=== PATIENT | male | born 1965 | race Caucasian/White ===

== ENCOUNTER → 2019-09-16 10:43 | Outpatient (CLI) | payer MEDICARE, SELFPAY ==
--- NOTE | ~2019-09-16 | XR_ITS ---
EXAMINATION: XR chest 2V DATE: 09/16/2019 10:57 INDICATION: Wheezing. TECHNIQUE: Frontal and lateral views of the chest were obtained. COMPARISON: Chest 2 views 04/10/2008 FINDINGS: A calcified left lung nodule is consistent with old granulomatous disease. No pleural effus ion or pneumothorax. The heart size is normal. Median sternotomy wires and mediastinal surgical clips are seen, likely from prior coronary artery bypass grafting. IMPRESSION: 1. No acute cardiopulmonary disease. Reviewed, dictated and finalized at location B. [facility]
== END ==
PROVIDERS: PCP Emergency Medicine; Visit Provider Emergency Medicine
DX: R06.2 Wheezing (principal)
CPT/HCPCS: 71046

== ENCOUNTER 2022-04-23 08:59 | Outpatient (CLI) | payer MEDICARE, SELFPAY ==
--- NOTE | 2022-05-24 23:38 | WPDSLEEPSTUD ---
Sleep Study Date of Study: 04/23/22 Ordering Provider: Pushpa Spears MD Interpreting Physician: Cass Berman DO Sleep Study Type: Split Polysomnogram Height: 1.7 m Weight: 106.594 kg Body Mass Index: 36.8 Neck Circumference (inches): 19 Winder: 18 Reason for Sleep Study Previous history of VIBHA and had an ASV Titration in 2016. He was on ASV EPAP 7/min PS 3, Max PS 15. He ran out of supplies 6 months ago so he was unable to continue using it. 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 The patient has not used his ASV machine in 6 months due to not having supplies. The patient frequently awakens from sleep short of breath. He denies awakening at night with heartburn, belching or cough. He occasionally has trouble sleeping when he has a cold. He frequently wakes up gasping for air throughout the night. He frequently has breathing problems at night observed by himself or others. He occasionally has heart palpitations or irregular heartbeats during the night. He constantly falls asleep during the day but never while driving. He denies sleep paralysis and cataplexy. He denies having trouble at school or work due to sleepiness. He occasionally experiences vivid dreamlike scenes upon awakening or falling asleep. He occasionally feels afraid of going to sleep. He denies having nightmares. He denies remembering his drinks. He constantly has thoughts racing through his mind. He rarely feels sad or depressed. He constantly has anxiety. He frequently notices parts of his body jerk. He frequently kicks during the night. He occasionally has crawling and aching feelings in his legs and occasionally has leg pain during the night. He denies grinding his teeth during sleep and denies awakening with morning jaw pain. He is occasionally bothered by pain during the day and occasionally awakened by pain during the night. He occasionally wakes up feeling stiff in the morning. He rarely wakes up with sore or achy muscles. He rarely wakes up with pain in the neck, spine and other joints. He goes to bed at 10:00 p.m. on weekdays and at 11:00 p.m. on the weekends. It takes him several hours to fall asleep. He wakes up 3-4 times throughout the night for unknown reasons. It takes him at least an hour to fall back asleep. He wakes up at 10 a.m. on weekdays and at 11:00 a.m. on the weekends. He typically gets 3 hours of sleep per night. He will stay in bed for an hour after waking up in the morning. He currently lives with his son. He does not consume any caffeinated beverages within 2 hours of bedtime. He does not engage in physical exercise before bedtime. He will watch television before falling asleep. He will take naps in the afternoon or the evening but they are not refreshing. He drinks 2 cans of caffeinated beverage per day. He used to smoke 2 packs a day for 35 years but stopped in February 2021. [facility] Past Medical History Medical History CHF (congestive heart failure) COPD (chronic obstructive pulmonary disease) Heart disease Social History Social History Smoking packs per day: 2 Smoking cigarettes per day: 40.0 Years smoked: 35 Smoking pack-years: 70.00 Smoking status: Former smoker Tobacco type: cigarettes Smoking end date: 02/12/21 Medications Home Medications Medication Instructions Recorded Confirmed Type alirocumab 75 mg/mL subcutaneous 75 mg subcut ONCE 02/21/22 History pen injector (Praluent Pen) clopidogrel 75 mg tablet 75 mg PO DAILY 02/21/22 History fluticasone propionate 50 1 spray intranasal DAILY 02/21/22 History mcg/actuation nasal spray,suspension nitroglycerin 0.2
[2022-05-24 23:47] VITALS: BMI 36.8
== END 2022-04-24 06:08 | disposition home or self-care (01) ==
LOC: ANHCSM 08:59
PROVIDERS: PCP Emergency Medicine; Visit Provider Internal Medicine Critical Care Medicine
DX: G47.33 Obstructive sleep apnea (adult) (pediatric) (principal)
CPT/HCPCS: 95811

== ENCOUNTER 2022-08-28 12:38 | Outpatient (CLI) | payer MEDICARE, SELFPAY ==
--- NOTE | 2022-08-28 16:27 | P.PCNPFT_ITS ---
PFT Procedure Performed PFT Procedure Performed Spirometry with Pre/Post Bronchodilator Plethysmography (Lung Vol) Diffusing Cap (DLCO) Flow Vol Loop PFT Interpretation This is a pulmonary function test with pre and post-bronchodilator spirometry, plethysmography and diffusing capacity. The test was performed and results interpreted in accordance with the 2019 and 2005 ATS/ERS Task Force guidelines respectively using the Global Lung Function Initiative-2012 reference equations. Patient demonstrated good effort and cooperation. Reproducibility criteria were met. The quality of the pre bronchodilator spirometry maneuver was Grade A and post bronchodilator spirometry maneuver was Grade A. Findings: Spirometry: There is decreased maximal expiratory airflow at low lung volumes with a mildly concave expiratory flow tracing. The contour the inspiratory flow tracing is normal. The pre bronchodilator FVC is 4.03 L, 91% predicted. The pre bronchodilator FEV1 is 2.71 L, 78% predicted. The pre bronchodilator FEV1: FVC ratio 67%. The post bronchodilator FVC is 4.11 L, representing a 2% increase. The post bronchodilator FEV1 is 3.00 L, representing an 11% increase. The post bronchodilator FEV1:FVC ratio was 73%. Plethysmography: The total lung capacity is 8.16 L, 124% predicted. The fu nctional residual capacity is 4.06 L, 120% predicted. The residual volume is 4.02 L, 194% predicted. Diffusing capacity: The diffusing capacity unadjusted for hemoglobin and carboxyhemoglobin is 24.5, 87% predicted. The diffusing capacity adjusted for alveolar volume is 4.04, 91% predicted. Impression: There is a mild obstructive abnormality with a normal FEV and without significant improvement after inhaling a single dose of albuterol. The increase in residual volume is consistent with air trapping from an obstructive abnormality. The diffusing capacity is normal. There are no prior studies for comparison
== END 2022-08-28 12:39 | disposition home or self-care (01) ==
LOC: ANHPFT 12:39
PROVIDERS: PCP Emergency Medicine; Visit Provider Physician Assistant
DX: J44.9 Chronic obstructive pulmonary disease, unspecified (principal); R06.02 Shortness of breath; R94.2 Abnormal results of pulmonary function studies
CPT/HCPCS: 94060; 94726; 94729

== ENCOUNTER 2024-03-13 10:40 | Emergency (ER) | payer MEDICARE, SELFPAY ==
--- NOTE | 2024-03-13 10:51 | ED.EAR ---
HPI - Ear Problem General Chief complaint: Ear Stated complaint: right ear pain,swelling Time Seen by Provider: 03/13/24 10:43 Source: patient Mode of arrival: ambulatory Limitations: no limitations History of Present Illness HPI Narrative: Jeremiah is a 58-year-old male patient presenting to the clinic today with complaints of right ear pain and swelling x 2 days. He reports he has tried some [id number] swimmer's ear medication without relief. Also tried taking ibuprofen without much relief. States he feels as though his ears swelling shut and he has lymph node swelling over the pre aurical nodes Related Data Home Medications Medication Instructions Recorded Confirmed alirocumab 75 mg/mL subcutaneous 75 mg subcut ONCE 02/21/22 06/24/23 pen injector (Praluent Pen) clopidogrel 75 mg tablet 75 mg PO DAILY 02/21/22 06/24/23 fluticasone propionate 50 1 spray intranasal DAILY 02/21/22 06/24/23 mcg/actuation nasal spray,suspension nitroglycerin 0.2 mg/hr 1 patch transdermal DAILY 02/21/22 06/24/23 transdermal 24 hour patch (Nitro-Dur) nitroglycerin 0.4 mg sublingual 0.4 mg sublingual Q5M PRN 02/21/22 06/24/23 tablet (Nitrostat) psyllium husk 3 gram/3 gram oral g PO 02/21/22 06/24/23 powder rosuvastatin 40 mg tablet 40 mg PO DAILY 02/21/22 06/24/23 metoprolol tartrate 25 mg tablet 25 mg PO BID 09/17/22 06/24/23 Allergies Allergy/AdvReac Type Severity Reaction Status Date / Time No Known Drug Allergies Allergy none Verified 03/13/24 10:42 Review of Systems Review of Systems: Pertinent positives per HPI. Patient denies any fever, chills, rash, headache, visual changes, dizziness, cough, runny nose, sore throat, shortness of breath, chest pain, palpitations, nausea, vomiting, diarrhea, constipation, abdominal pain, or any urinary issues. [facility] Past Medical History Medical History CHF (congestive heart failure) COPD (chronic obstructive pulmonary disease) Heart disease Surgical History Surgical History History of cholecystectomy History of herniorrhaphy Social History Social History Smoking packs per day: 2 Smoking cigarettes per day: 40.0 Years smoked: 35 Smoking pack-years: 70.00 Smoking status: Former smoker Tobacco type: cigarettes Smoking end date: 02/12/21 Comments At the time of my signature, I reviewed and agree with the nursing past medical, surgical, social, and family history. There is no relevant family history pertinent to the patient complaint. Exam Narrative: General: Well-developed, obese, in no apparent distress Head: Normocephalic, atraumatic Eyes: Pupils equally round and reactive to light bilaterally, EOM intact, sclera and conjunctive clear, no discharge, lids normal Ears: Left TMs intact and clear, Left ear canals clear, Unable to visualize right TM due to swelling of the right ear canal, white otorrhea noted on exam, swelling noted over the feli aurical nodes, tenderness to palpation of the tragus and pulling of the pinna, no tenderness or redness over the mastoid, grossly hearing normal. Nose: Nares patent, no discharge, no inflammation, no sinus tenderness. Mouth: Oropharynx without lesions or masses, good dentition, MMM. Neck: Supple, trachea midline, no enlargement of anterior or posterior cervical nodes, no thyroid masses or goiter palpable. Cardio: Regular rate and rhythm, s1 and s2 normal, no murmur appreciated. Resp: Clear to auscultation bilaterally anteriorly and posteriorly, no rhonchi, rales, wheezing or rubs Course Course Emergency Course: Portions of this record may have been created with voice recognition software. Level of Care: Express Care Visit Vital Signs Vital signs: Vital Signs Temperature 37.2 C 03/13/24 10:56 Pulse Rate 62
[2024-03-13 10:56] VITALS: BP 155/88; PULSE 62; RESP 18; TEMP 37.2; O2SAT 99
== END 2024-03-13 11:08 | disposition home or self-care (01) ==
PROVIDERS: Emergency Provider Nurse Practitioner Family; PCP Physician Assistant
DX: H60.311 Diffuse otitis externa, right ear (principal); Z87.891 Personal history of nicotine dependence; J44.9 Chronic obstructive pulmonary disease, unspecified; I50.9 Heart failure, unspecified
CPT/HCPCS: 99213; G0463

== ENCOUNTER 2024-11-14 10:13 | Emergency (ER) | payer MEDICARE, SELFPAY ==
[2024-11-14 10:33] VITALS: BP 210/101; PULSE 61; RESP 16; TEMP 36.6; O2SAT 99
[2024-11-14 10:34] VITALS: BP 204/119
--- NOTE | 2024-11-14 10:41 | ED.GENADULT ---
HPI - General Adult General Chief complaint: Ear Stated complaint: right ear pain Time Seen by Provider: 11/14/24 10:42 Source: patient, RN notes reviewed and old records reviewed Mode of arrival: ambulatory Limitations: no limitations History of Present Illness HPI narrative: 59-year-old male presents to the [facility] with complaints right ear pain. Patient reports symptoms started on Thursday. Does have an ENT provider. Patient with a history of high blood pressure. Patient states that he takes metoprolol. Patient reports he did take his medication today. Patient denies any headaches, blurry vision, chest pain, shortness of breath. Onset (ago): day(s) (3) Related Data Home Medications ?Medication ?Instructions ?Recorded ?Confirmed ?Last Taken ?Type alirocumab 75 mg/mL subcutaneous 75 mg subcut ONCE 02/21/22 06/24/23 Unknown History pen injector (Praluent Pen) clopidogrel 75 mg tablet 75 mg PO DAILY 02/21/22 06/24/23 Unknown History fluticasone propionate 50 1 spray intranasal DAILY 02/21/22 06/24/23 Unknown History mcg/actuation nasal spray,suspension nitroglycerin 0.2 mg/hr 1 patch transdermal DAILY 02/21/22 06/24/23 Unknown History transdermal 24 hour patch (Nitro-Dur) nitroglycerin 0.4 mg sublingual 0.4 mg sublingual Q5M PRN 02/21/22 06/24/23 Unknown History tablet (Nitrostat) psyllium husk 3 gram/3 gram oral g PO 02/21/22 06/24/23 Unknown History powder rosuvastatin 40 mg tablet 40 mg PO DAILY 02/21/22 06/24/23 Unknown History metoprolol tartrate 25 mg tablet 25 mg PO BID 09/17/22 06/24/23 Unknown History evolocumab 140 mg/mL subcutaneous mg subcut 11/14/24 Unknown History pen injector (Repatha SureClick) Allergies Allergy/AdvReac Type Severity Reaction Status Date / Time No Known Drug Allergies Allergy none Verified 11/14/24 10:51 Review of Systems Review of Systems: All systems reviewed & are unremarkable except as noted in HPI and below Constitutional: Constitutional: Reports no additional constitutional complaints ENT: Reports as per HPI and Reports otalgia (Right) Cardiovascular: Cardiovascular: Reports no additional cardiovascular complaints, Denies chest pain and Denies dyspnea Respiratory: Respiratory: Reports no additional respiratory complaints, Denies chest congestion, Denies cough and Denies dyspnea Musculoskeletal: Musculoskeletal: Reports no additional musculoskeletal complaints Integumentary/Breasts: Skin/Breast: Reports system reviewed and no additional complaints, except as docu [facility] Past Medical History Medical History Heart disease COPD (chronic obstructive pulmonary disease) CHF (congestive heart failure) Surgical History Surgical History History of herniorrhaphy History of cholecystectomy Social History Social History Smoking packs per day: 2 Smoking cigarettes per day: 40.0 Years smoked: 35 Smoking pack-years: 70.00 Smoking status: Former smoker Tobacco type: cigarettes Smoking end date: 02/12/21 Comments At the time of my signature, I reviewed and agree with the nursing past medical, surgical, social, and family history. There is no relevant family history pertinent to the patient complaint. Exam Const: General: cooperative, healthy appearing, comfortable, no acute distress, well developed, alert and well nourished Nutritional Appearance: well nourished Orientation/consciousness: patient oriented x3 Limitations: no limitations HENMT: Head: normal to inspection Ears: TM normal on the left, mastoids normal, Abnormal EAC present erythema on the right, edema on the right and EAC tenderness on the right, periauricular adenopathy on the right (Pre-auricular) and unable to visualize TM on the right Face/Nose/Sinus: Normal external nose present Mouth: Yes Normal oral and palatal mucosa present, Yes lip normal, Yes tongue normal and Yes moist mucous membranes Throat: posterior oropharynx normal, uvula midline and no uvular edema Eyes: General: appearance normal, both eyes and all related structures Alignment and Position: alignment normal Neck: Neck: normal visual inspection, full ROM, no lymphadenopathy and no meningeal signs Chest: Chest palpation & inspection: normal inspection of the chest Resp: Effort & Inspection: normal respiratory effort and able to speak in complete sentences Cardio: Rate: regular rate Skin: General skin exam: normal color and no rashes or lesions noted Neuro: General: patient oriented x3, gait normal, moves all extremities and no meningeal signs Cognition (Neuro): normal cognition Speech: normal speech Gait exam (Neuro): Normal gait present Extrem: General: normal to inspection, full ROM, capillary refill normal and normal gait Psych: Appearance: grossly normal and well kempt Mental Status: mental status grossly normal Speech and movement: Normal speech and movement present and Clear speech present Affect: normal affect Attitude: cooperative Course Course Level of Care: Express Care Visit Vital Signs Vital signs: Vital Signs Temperature 97.8 F 11/14/24 10:33 Pulse Rate 61 11/14/24 10:33 Respiratory Rate 16 11/14/24 10:33 Blood Pressure 210/101 H 11/14/24 10:33 Pulse Oximetry 99 11/14/24 10:33 Oxygen Delivery Room Air 11/14/24 10:33 Temperature 97.8 F 11/14/24 10:33 Pulse Rate 61 11/14/24 10:33 Respiratory Rate 16 11/14/24 10:33 Blood Pressure 212/105 H 11/14/24 11:10 Pulse Oximetry 99 11/14/24 10:33 Oxygen Delivery Room Air 11/14/24 10:33 Reviewed Medical Decision Making MDM Narrative Medical decision making narrative: Patient sitting comfortably in exam room. Nontoxic, vitals stable. Patient in no acute distress Patient presents for pain to the right ear. Significant erythema noted with swelling. Ear wick placed. Discussed with patient, he verbalized understanding. Will follow up with ENT Discussed blood pressure with patient. States he will call as primary for further evaluation. Manual pressure 190/103 Discussed in great detail signs and symptoms proceed to the emergency room which he verbalized understanding Discharge instructions reviewed with patient, as well as provided in writing per nursing staff. The instructions also include specific and strict return/GO TO THE ER as well as f/u information. All questions have been answered, and the patient deny any further questions with discharge and discharge plan. Some parts of this dictation were generated by voice recognition software and may contain typographical and/or grammatical inaccuracies. Differential Diagnosis Differential Diagnosis: Otitis media, serous otitis, earache Medical Records Medical records reviewed: Yes I reviewed the external patient's medical records. Vital Signs Vital Signs: Vital Signs Temperature 97.8 F 11/14/24 10:33 Pulse Rate 61 11/14/24 10:33 Respiratory Rate 16 11/14/24 10:33 Blood Pressure 210/101 H 11/14/24 10:33 Pulse Oximetry 99 11/14/24 10:33 Oxygen Delivery Room Air 11/14/24 10:33 Temperature 97.8 F 11/14/24 10:33 Pulse Rate 61 11/14/24 10:33 Respiratory Rate 16 11/14/24 10:33 Blood Pressure 212/105 H 11/14/24 11:10 Pulse Oximetry 99 11/14/24 10:33 Oxygen Delivery Room Air 11/14/24 10:33 Reviewed Lab Data Lab results reviewed: Yes I reviewed the patient's lab results. Labs: Reviewed Critical Care Time Critical Care Time Critical Care Time: No Discharge Plan Discharge Clinical Impression: Otitis externa Qualifiers: Otitis externa type: unspecified type Chronicity: acute Laterality: right Qualified Code(s): H60.501 - Unspecified acute noninfective otitis externa, right ear Patient Disposition: Home, Self-Care Condition: Stable Instructions: Antibiotic Form, Swimmer's Ear (ED), How to Take a Blood Pressure Reading (ED), Hypertension (ED) Additional Instructions: Today your blood pressure was elevated. It is recommended you follow-up with primary care provider within 1 week. If you are having a hard time finding a physician please call our [facility] group liaison at [phone]. Today your your showed an otitis externa. Please follow-up with your ENT provider for further evaluation. An ear wick was placed in your ear please place the ear drops in your ear as soon as you get them and then again tonight. Patient Language: Korean Prescriptions: New amoxicillin-pot clavulanate 875-125 mg tablet 1 tablet PO Q12H Qty: 20 0RF ciprofloxacin-dexamethasone 0.3-0.1 % drops,suspension 5 drp RIGHT EAR Q12H 7 Days Qty: 7.5 0RF No Action Repatha SureClick 140 mg/mL pen injector SUBCUT metoprolol tartrate 25 mg tablet 25 mg PO BID fluticasone propionate 50 mcg/actuation spray,suspension 1 spray intranasal DAILY Rx Instructions: administer into each nostril clopidogrel 75 mg tablet 75 mg PO DAILY nitroglycerin [Nitro-Dur] 0.2 mg/hr patch 24 hour 1 patch transdermal DAILY Rx Instructions: allow nitrate-free interval of approx. 10-12 hrs per 24-hour period nitroglycerin [Nitrostat] 0.4 mg tablet, sublingual 0.4 mg sublingual Q5M PRN Rx Instructions: do not exceed 3 doses per episode Praluent Pen 75 mg/mL pen injector 75 mg subcut ONCE Rx Instructions: inject into abdomen, thigh, or upper arm (deltoid muscle); rotate sites rosuvastatin 40 mg tablet 40 mg PO DAILY psyllium husk 3 gram/3 gram powder PO (DME) CPAP See Rx Instructions .Route .MEDSUPPLY Qty: 1 0RF Rx Instructions: CPAP (E0601) 15 CMH20 EPR 3 (E0562) Heated Humidifier CPAP/BIPAP Supplies/Mask (headgear/ tubing/filters) size medium Resmed AirTouch F20 full face mask DX Code: G47.33 Length of Need: Lifetime DME:Brynn Babcock, CANDYNPI: [id number] albuterol sulfate 90 mcg/actuation HFA aerosol inhaler 1 - 2 puff inhalation Q4-6H PRN (Reason: shortness of breath or wheezing) Qty: 8.5 2RF Follow-up/Referrals: PHYSICIAN,FAMILY MEDICINE PHYSICIAN [Primary Care Provider] - Stand Alone Forms: Work/School Release IP Time of Disposition: 11:08
[2024-11-14 10:50] VITALS: BP 190/103
[2024-11-14 11:10] VITALS: BP 212/105
== END 2024-11-14 11:10 | disposition home or self-care (01) ==
PROVIDERS: Emergency Provider Nurse Practitioner
DX: H60.501 Unspecified acute noninfective otitis externa, right ear (principal); Z87.891 Personal history of nicotine dependence; I50.9 Heart failure, unspecified; J44.9 Chronic obstructive pulmonary disease, unspecified
CPT/HCPCS: 99213; G0463

== ENCOUNTER 2024-12-24 12:26 | Emergency (ER) | payer MEDICARE, SELFPAY ==
--- NOTE | 2024-12-24 12:33 | ED.SKABFB ---
HPI - Skin/Abscess/Foreign Bdy General Chief complaint: Skin/Abscess/Foreign Body Stated complaint: Rash Time Seen by Provider: 12/24/24 12:33 Source: patient Mode of arrival: ambulatory Limitations: no limitations History of Present Illness HPI narrative: Jeremiah is a 59-year-old male patient presenting to the clinic today with complaints of a painful rash on his left back, left side, and left abdomen. He reports symptoms started approximately 2 days ago. Feels as though there is pins and needles sticking him. No fevers, chills, body aches. Has had the chickenpox as a kid but has never had shingles. Has not gotten a shingles shot Related Data Home Medications ?Medication ?Instructions ?Recorded ?Confirmed ?Last Taken ?Type alirocumab 75 mg/mL subcutaneous 75 mg subcut ONCE 02/21/22 06/24/23 Unknown History pen injector (Praluent Pen) clopidogrel 75 mg tablet 75 mg PO DAILY 02/21/22 06/24/23 Unknown History fluticasone propionate 50 1 spray intranasal DAILY 02/21/22 06/24/23 Unknown History mcg/actuation nasal spray,suspension nitroglycerin 0.2 mg/hr 1 patch transdermal DAILY 02/21/22 06/24/23 Unknown History transdermal 24 hour patch (Nitro-Dur) nitroglycerin 0.4 mg sublingual 0.4 mg sublingual Q5M PRN 02/21/22 06/24/23 Unknown History tablet (Nitrostat) psyllium husk 3 gram/3 gram oral g PO 02/21/22 06/24/23 Unknown History powder rosuvastatin 40 mg tablet 40 mg PO DAILY 02/21/22 06/24/23 Unknown History metoprolol tartrate 25 mg tablet 25 mg PO BID 09/17/22 06/24/23 Unknown History evolocumab 140 mg/mL subcutaneous mg subcut 11/14/24 Unknown History pen injector (Repatha SureVictor Hugoick) Allergies Allergy/AdvReac Type Severity Reaction Status Date / Time No Known Drug Allergies Allergy none Verified 12/24/24 12:35 Review of Systems Review of Systems: Pertinent positives per HPI. Patient denies any fever, chills, headache, visual changes, dizziness, cough, runny nose, sore throat, shortness of breath, chest pain, palpitations, nausea, vomiting, diarrhea, constipation, abdominal pain, or any urinary issues. ON LICENSE OF [facility] Past Medical History Medical History Heart disease COPD (chronic obstructive pulmonary disease) CHF (congestive heart failure) Surgical History Surgical History History of herniorrhaphy History of cholecystectomy Social History Social History Smoking packs per day: 2 Smoking cigarettes per day: 40.0 Years smoked: 35 Smoking pack-years: 70.00 Smoking status: Former smoker Tobacco type: cigarettes Smoking end date: 02/12/21 Comments At the time of my signature, I reviewed and agree with the nursing past medical, surgical, social, and family history. There is no relevant family history pertinent to the patient complaint. Exam Narrative: General: Well-developed, obese, in no apparent distress Head: Normocephalic, atraumatic. Cardio: Regular rate and rhythm, s1 and s2 normal, no murmur appreciated. Resp: Clear to auscultation bilaterally, no rhonchi, rales, wheezing or rubs. Integumentary: [place], warm, and dry, painful, red, raised, erythematous base rash with vesicular lesions following dermatome and not crossing the midline border Course Course Emergency Course: Portions of this record may have been created with voice recognition software. Level of Care: Express Care Visit Vital Signs Vital signs: Vital Signs Temperature 36.2 C L 12/24/24 12:37 Pulse Rate 88 12/24/24 12:37 Respiratory Rate 19 12/24/24 12:37 Blood Pressure 184/111 H 12/24/24 12:37 Pulse Oximetry 100 12/24/24 12:37 Oxygen Delivery Room Air 12/24/24 12:37 Temperature 36.2 C L 12/24/24 12:37 Pulse Rate 88 12/24/24 12:37 Respiratory Rate 19 12/24/24 12:37 Blood Pressure 184/111 H 12/24/24 12:37 Pulse Oximetry 100 12/24/24 12:37 Oxygen Delivery Room Air 12/24/24 12:37 Vital signs reviewed MDM - Skin/Abscess/Foreign Bdy MDM Narrative Medical decision making narrative: At the time of visit patient is resting comfortably on the exam table. Patient appears to be nontoxic. Plan: I suspect patient has shingles. Prescription for acyclovir was sent to the pharmacy. Blood pressure was elevated in the clinic today however the patient has not taken his blood pressure medications. He denies any chest pain, shortness of breath, dizziness, or headache. Supportive measures were discussed with the patient and they voiced understanding discharge instructions and agrees to treatment plan. Return precautions reviewed Differential Diagnosis Differential diagnosis: Likely abscess of skin or subcutaneous tissue, viral exanthem, dermatophytosis, urticaria, herpes zoster, allergic reaction to drug, cellulitis, eczema, insect bites, impetigo and contact dermatitis Discharge Plan Discharge Clinical Impression: Shingles Qualifiers: Herpes zoster complications: without complications Qualified Code(s): B02.9 - Zoster without complications Patient Disposition: Home Condition: Stable Instructions: Antibiotic Form, Shingles (ED) Additional Instructions: Take acyclovir as prescribed May take Tylenol/Motrin as needed for pain May apply lidocaine patch over the affected area to help alleviate pain Keep area covered if draining-this will be considered no longer contagious when it is scabbed over Stay away from person's or anybody who is in immunocompromised until rash is scabbed over Follow-up with your primary care doctor in 3-4 days if symptoms persist or sooner if they worsen. You have an elevated blood pressure in the clinic today and I recommend follow-up with primary care physician to have this reevaluated within the next week if symptoms persist. [place] [employer] guidelines state that normal blood pressure is 120/80 or less. Anything over 120/80 is considered elevated and should be monitored. You may need to decrease you salt intake and eat a heart healthy diet to help lower you blood pressure, other treatments would include decreasing stress, weight loss, stop caffeine, and quit smoking. Your primary care provider can determine whether you need to start antihypertensive medications. Untreated high blood pressure can cause dizziness, headaches, visual changes, blindness, kidney failure, stroke, heart attack, and male impotence. Patient Language: Bengali Prescriptions: New acyclovir 800 mg tablet 800 mg PO Q4H 7 Days Qty: 42 0RF Rx Instructions: while awake; give 5 doses in 24 hours No Action Repatha SureClick 140 mg/mL pen injector SUBCUT amoxicillin-pot clavulanate 875-125 mg tablet 1 tablet PO Q12H Qty: 20 0RF ciprofloxacin-dexamethasone 0.3-0.1 % drops,suspension 5 drp RIGHT EAR Q12H 7 Days Qty: 7.5 0RF metoprolol tartrate 25 mg tablet 25 mg PO BID fluticasone propionate 50 mcg/actuation spray,suspension 1 spray intranasal DAILY Rx Instructions: administer into each nostril clopidogrel 75 mg tablet 75 mg PO DAILY nitroglycerin [Nitro-Dur] 0.2 mg/hr patch 24 hour 1 patch transdermal DAILY Rx Instructions: allow nitrate-free interval of approx. 10-12 hrs per 24-hour period nitroglycerin [Nitrostat] 0.4 mg tablet, sublingual 0.4 mg sublingual Q5M PRN Rx Instructions: do not exceed 3 doses per episode Praluent Pen 75 mg/mL pen injector 75 mg subcut ONCE Rx Instructions: inject into abdomen, thigh, or upper arm (deltoid muscle); rotate sites rosuvastatin 40 mg tablet 40 mg PO DAILY psyllium husk 3 gram/3 gram powder PO (DME) CPAP See Rx Instructions .Route .MEDSUPPLY Qty: 1 0RF Rx Instructions: CPAP (E0601) 15 CMH20 EPR 3 (E0562) Heated Humidifier CPAP/BIPAP Supplies/Mask (headgear/ tubing/filters) size medium Resmed AirTouch F20 full face mask DX Code: G47.33 Length of Need: Lifetime DME:Brynn Babcock, CANDYNPI: [id number] albuterol sulfate 90 mcg/actuation HFA aerosol inhaler 1 - 2 puff inhalation Q4-6H PRN (Reason: shortness of breath or wheezing) Qty: 8.5 2RF Follow-up/Referrals: Daron,MARTI Lord [Primary Care Provider] - Time of Disposition: 12:42 Quality NIHSS Nursing Documentation ED NIHSS nursing documentation: reviewed/agree
[2024-12-24 12:37] VITALS: BP 184/111; PULSE 88; RESP 19; TEMP 36.2; O2SAT 100
== END 2024-12-24 12:50 | disposition home or self-care (01) ==
PROVIDERS: Emergency Provider Nurse Practitioner Family; PCP Physician Assistant
DX: B02.9 Zoster without complications (principal); J44.9 Chronic obstructive pulmonary disease, unspecified; I50.9 Heart failure, unspecified; Z87.891 Personal history of nicotine dependence
CPT/HCPCS: 99213; G0463